=== PATIENT | male | born 1975 | race Caucasian/White ===

== ENCOUNTER 2017-04-20 16:15 | Emergency (ER) | payer OTHER ==
[~2017-04-20 16:15] MED LIST: EPINEPHrine 1 MG/1 ML Amp IM ONE
[2017-04-20] MEDS ORDERED: Sodium Chloride 0.9% 10 ML Syringe FLUSH PRN (16:18)
[2017-04-20] MEDS ORDERED: Famotidine 20 MG/2 ML SDV IVPUSH ONE (16:18)
[2017-04-20] MEDS ORDERED: Sodium Chloride 0.9% 1,000 ML IV ONE (16:18)
[2017-04-20] MEDS ORDERED: methylPREDNISolone Sodium Succinate 125 MG/2 ML SDV IVPUSH ONE (16:18)
[2017-04-20] MEDS ORDERED: Sodium Chloride 0.9% 2.5 ML Syringe FLUSH PRN (16:18)
[2017-04-20] MEDS ORDERED: diphenhydrAMINE 50 MG/ML SDV IVPUSH ONE (16:18)
[2017-04-20] MEDS ORDERED: EPINEPHrine 1 MG/1 ML Amp IVPUSH ONE (16:19)
--- NOTE | 2017-04-20 16:21 | EDM.PDOC ---
ED HPI GENERAL MEDICAL PROBLEM - General Stated Complaint: PT HAS ALLERGIC REACTION Time Seen by Provider: 04/20/17 16:18 Source of Information: Reports: Patient History Limitations: Reports: No Limitations - History of Present Illness INITIAL COMMENTS - FREE TEXT/NARRATIVE: History of present illness: []Patient started having itchiness on his skin and tongue at 3:30 after eating Ritz crackers and canned cheese. He is eating these things before and has never had a problem. Denies any new exposures or any other new foods. His symptoms have progressively gotten worse he feels a lump in his throat and his tongue continues to swell. Review of systems: As per history of present illness and below otherwise all systems reviewed and negative. Past medical history: As per history of present illness and as reviewed below otherwise noncontributory. Surgical history: As per history of present illness and as reviewed below otherwise noncontributory. Social history: No reported history of drug or alcohol abuse. Family history: As per history of present illness and as reviewed below otherwise noncontributory. Physical exam: General: Well developed, well nourished in NAD HEENT: Atraumatic, tongue swollen history of pharynx with edema, pupils reactive , negative for conjunctival pallor or scleral icterus, mucous membranes moist, throat clear, neck supple, nontender, trachea midline. No stridor Lungs: Clear to auscultation, breath sounds equal bilaterally, chest nontender. No wheezing Heart: S1S2, regular, negative for clicks, rubs, or JVD. Abdomen: Soft, nondistended, nontender. Negative for masses or hepatosplenomegaly. Negative for costovertebral tenderness. Pelvis: Stable nontender. Genitourinary: Deferred. Rectal: Deferred. Extremities: Atraumatic, negative for cords or calf pain. Neurovascular unremarkable. Neuro: Awake, alert, oriented. Cranial nerves II through XII unremarkable. Cerebellum unremarkable. Motor and sensory unremarkable throughout. Exam nonfocal. Diagnostics: [] Therapeutics: []IV fluids, Pepcid, Benadryl, Solu-Medrol, epinephrine given patient was observed until improvement. Impression: []Anaphylactic reaction Plan: []EpiPen 2 pack prescribed, Medrol Dosepak continue Benadryl every 4 hours as needed increase fluids and return if symptoms worsen or change Definitive disposition and diagnosis as appropriate pending reevaluation and review of above. - Related Data Allergies Allergy/AdvReac Type Severity Reaction Status Date / Time No Known Allergies Allergy Verified 04/20/17 16:28 Home Meds: Home Meds EPINEPHrine [Epipen] 0.3 mg IM ASDIRECTED PRN #1 ml 04/20/17 [Rx] methylPREDNISolone [Medrol] 4 mg PO ASDIRECTED #1 dosepk 04/20/17 [Rx] Social & Family History - Tobacco Use Smoking Status *Q: Heavy Tobacco Smoker Years of Tobacco use: 8 Packs/Tins Daily: 1 - Recreational Drug Use Recreational Drug Use: No ED ROS ALLERGIC REACTION - Review of Systems Review Of Systems: See Below (See history of present illness) ED EXAM GENERAL NO PERIP PULSE - Physical Exam Exam: See Below (See history of present illness) Course - Vital Signs Last Recorded V/S: Last Vital Signs Temp 97.5 F 04/20/17 16:23 Pulse 107 H 04/20/17 16:23 Resp 16 04/20/17 16:23 BP 156/108 H 04/20/17 16:23 Pulse Ox 94 L 04/20/17 16:23 - Orders/Labs/Meds Orders: Active Orders 24 hr Category Date Time Status RT Aerosol Therapy [RC] ASDIRECTED Care 04/20/17 16:25 Active Sodium Chloride 0.9% [Saline Flush] Med 04/20/17 16:18 Active 10 ml FLUSH ASDIRECTED PRN Sodium Chloride 0.9% [Saline Flush] Med 04/20/17 16:18 Active 2.5 ml FLUSH ASDIRECTED PRN Saline Lock Insert [OM.PC] Stat Oth 04/20/17 16:18 Ordered Medication Orders Sodium Chloride (Saline Flush) 10 ml FLUSH ASDIRECTED PRN PRN Reason: Keep Vein Open Sodium Chloride (Saline Flush) 2.5 ml FLUSH ASDIRECTED PRN PRN Reason: Keep Vein Open Meds: Medications Generic Name Dose Route Start Last Admin Trade Name Freq PRN Reason Stop Dose Admin Sodium Chloride 10 ml 04/20/17 16:18 Saline Flush FLUSH ASDIRECTED PRN Keep Vein Open Sodium Chloride 2.5 ml 04/20/17 16:18 Saline Flush FLUSH ASDIRECTED PRN Keep Vein Open Discontinued Medications Generic Name Dose Route Start Last Admin Trade Name Freq PRN Reason Stop Dose Admin Diphenhydramine HCl 50 mg 04/20/17 16:18 Benadryl IVPUSH 04/20/17 16:19 ONETIME ONE Epinephrine HCl 1 mg 04/20/17 16:19 04/20/17 16:35 Adrenalin IVPUSH 04/20/17 16:20 Not Given ONETIME ONE Epinephrine HCl 1 mg 04/20/17 16:15 04/20/17 16:19 Adrenalin IM 04/20/17 16:16 1 mg ONETIME ONE Administration Famotidine 20 mg 04/20/17 16:18 04/20/17 16:36 Pepcid IVPUSH 04/20/17 16:19 20 mg ONETIME ONE Administration Sodium Chloride 1,000 mls @ 999 mls/hr 04/20/17 16:18 04/20/17 16:36 Normal Saline IV 04/20/17 17:18 999 mls/hr .Bolus ONE Administration Methylprednisolone Sodium Succinate 125 mg 04/20/17 16:18 04/20/17 16:39 Solu-Medrol IVPUSH 04/20/17 16:19 125 mg ONETIME ONE Administration Racepinephrine 0.5 ml 04/20/17 16:25 04/20/17 16:36 S-2 2.25% NEB 04/20/17 16:26 0.5 ml ONETIME ONE Administration Departure - Departure Time of Disposition: 17:54 Disposition: Home, Self-Care 01 Condition: Good Clinical Impression: Anaphylaxis Qualifiers: Encounter type: initial encounter Qualified Code(s): T78.2XXA - Anaphylactic shock, unspecified, initial encounter - Discharge Information Prescriptions: EPINEPHrine [Epipen] 0.3 mg IM ASDIRECTED PRN #1 ml PRN Reason: Allergies methylPREDNISolone [Medrol] 4 mg PO ASDIRECTED #1 dosepk Referrals: PCP,None [Primary Care Provider] - Maria Guadalupe Barrios MD [Resident] - (Call for appointment) Additional Instructions: The following information is given to patients seen in the emergency department who are being discharged to home. This information is to outline your options for follow-up care. We provide all patients seen in our emergency department with a follow-up referral. The need for follow-up, as well as the timing and circumstances, are variable depending upon the specifics of your emergency department visit. If you don't have a primary care physician on staff, we will provide you with a referral. We always advise you to contact your personal physician following an emergency department visit to inform them of the circumstance of the visit and for follow-up with them and/or the need for any referrals to a consulting specialist. The emergency department will also refer you to a specialist when appropriate. This referral assures that you have the opportunity for follow-up care with a specialist. All of these measure are taken in an effort to provide you with optimal care, which includes your follow-up. Under all circumstances we always encourage you to contact your private physician who remains a resource for coordinating your care. When calling for follow-up care, please make the office aware that this follow-up is from your recent emergency room visit. If for any reason you are refused follow-up, please contact the [facility] Emergency Department at and asked to speak to the emergency department charge nurse. Solu-Medrol dose pack as directed, use epi-pens in emergencies only as directed , follow up with primary care for follow-up - My Orders Last 24 Hours: My Active Orders 04/20/17 16:18 Sodium Chloride 0.9% [Saline Flush] 10 ml FLUSH ASDIRECTED PRN Sodium Chloride 0.9% [Saline Flush] 2.5 ml FLUSH ASDIRECTED PRN Saline Lock Insert [OM.PC] Stat 04/20/17 16:25 RT Aerosol Therapy [RC] ASDIRECTED - Assessment/Plan Last 24 Hours: My Active Orders 04/20/17 16:18 Sodium Chloride 0.9% [Saline Flush] 10 ml FLUSH ASDIRECTED PRN Sodium Chloride 0.9% [Saline Flush] 2.5 ml FLUSH ASDIRECTED PRN Saline Lock Insert [OM.PC] Stat 04/20/17 16:25 RT Aerosol Therapy [RC] ASDIRECTED
[2017-04-20] MEDS ORDERED: Racepinephrine 2.25% 0.5 ML Neb Soln NEB ONE (16:25)
[2017-04-20 18:23] VITALS: BP 170/97
== END 2017-04-20 18:40 | disposition home or self-care (01) ==
LOC: MW.ED 16:15
DX: T78.2XXA Anaphylactic shock, unspecified, initial encounter (principal); F17.210 Nicotine dependence, cigarettes, uncomplicated
CPT/HCPCS: 94640; 96361; 96372; 96374; 96375; 99283; J0171; J1200; J2930; J7040; 99284